=== PATIENT | female | born 1990 | race American Indian/Alaskan Native ===

== ENCOUNTER 2020-08-31 20:25 | Outpatient (CLI) | payer MEDICAID ==
[2020-08-31] MEDS ORDERED: LACTATED RINGERS 1,000 ML IV ONE (21:15)
[2020-08-31 21:24] LABS: Bilirubin,Urine NEG (Negative); Blood,Urine NEG (Negative); Color,Urine Yellow (Yellow); Mucus,Urine FEW /HPF; Protein,Urine <15 mg/dL mg/dL (Negative); Urobilinogen,Urine < 2.0 mg/dL (<2.0)
[2020-08-31] MEDS ORDERED: ACETAMINOPHEN 325 MG TAB PO ONE (21:42)
[2020-08-31] MEDS ORDERED: TERBUTALINE 1 MG/1 ML INJ SUB-Q ONE (21:46)
[2020-08-31] MEDS ORDERED: TERBUTALINE 1 MG/1 ML INJ ONE (21:58)
[2020-08-31] MEDS ORDERED: ACETAMINOPHEN 500 MG TAB PO ONE (22:42)
== END 2020-09-01 00:45 | disposition home or self-care (01) ==
LOC: TRG 20:25 → APU 20:57 → TRG 09-01 00:45
PROVIDERS: ATTEND Obstetrics & Gynecology
DX: O26.892 Other specified pregnancy related conditions, second trimester (principal); R10.9 Unspecified abdominal pain; Z3A.26 26 weeks gestation of pregnancy
CPT/HCPCS: 59025; 81001; 96360; 96372; J3105; J7120

== ENCOUNTER 2020-09-15 11:53 | Outpatient (CLI) | payer MEDICAID | END 2020-09-15 14:17 | disposition home or self-care (01) | LOC: LAB 11:53 → APU 13:56 → LAB 14:17 | PROVIDERS: ATTEND Obstetrics & Gynecology | DX: O26.893 Other specified pregnancy related conditions, third trimester (principal); Z67.11 Type A blood, Rh negative; Z3A.31 31 weeks gestation of pregnancy | CPT/HCPCS: 86850; 86900; 86901; 96372; J2790 ==

== ENCOUNTER 2020-09-17 21:46 | Outpatient (CLI) | payer MEDICAID ==
[2020-09-18 01:29] LABS: Hemoglobin 10.2 gm/dl (10.1-14.3); Mean Corpuscular HGB Conc 34 % (30-34); Mean Corpuscular Volume 85 fl (79-97); Platelet Count 185 K/mm3 (140-440); Red Blood Count 3.53 M/mm3 (3.65-5.03); Red Cell Distribution Width 14.6 % (13.2-15.2)
[2020-09-18 01:36] LABS: Amphetamine Screen,Urine PRESUMPTIVE NEGATIVE; Benzodiazepines Screen,Urine PRESUMPTIVE NEGATIVE; Cannabinoid Screen,Urine PRESUMPTIVE POSITIVE; Cocaine Screen,Urine PRESUMPTIVE NEGATIVE; Methadone Screen,Urine PRESUMPTIVE NEGATIVE; Opiate Screen,Urine PRESUMPTIVE NEGATIVE
[2020-09-18 01:43] LABS: Alanine Aminotransferase 7 units/L (7-56)
[2020-09-18 01:59] LABS: Blood Urea Nitrogen 7 mg/dL (7-17); Calcium 8.4 mg/dL (8.4-10.2); Hemolysis Index 9
[2020-09-18 02:03] LABS: Bacteria,Urine 1+ /HPF (Negative); Bilirubin,Urine NEG (Negative); Blood,Urine SM (Negative); Color,Urine Yellow (Yellow); Protein,Urine <15 mg/dL mg/dL (Negative); Urobilinogen,Urine < 2.0 mg/dL (<2.0)
[2020-09-18 02:10] LABS: BUN/Creatinine Ratio 14
[2020-09-18] MEDS ORDERED: LIDOCAINE-MPF (1%) 10 MG/1 ML VIAL 5 ML INFILTRATI ONE ×2 (02:51→04:00)
[2020-09-18] MEDS: TERBUTALINE 1 MG/1 ML INJ SUB-Q PRN ×3 (03:37→04:43)
[2020-09-18 04:40] VITALS: BP 121/59
== END 2020-09-18 05:20 | disposition home or self-care (01) ==
LOC: TRG 21:46 → APU 21:47 → TRG 09-18 05:20
PROVIDERS: ATTEND Obstetrics & Gynecology
DX: O62.9 Abnormality of forces of labor, unspecified (principal); Z3A.31 31 weeks gestation of pregnancy
CPT/HCPCS: 36415; 59025; 80053; 80307; 81001; 85027; 96372; J0696; J3105; 96360

== ENCOUNTER 2020-11-17 08:32 | Inpatient (IN) | payer MEDICAID ==
[2020-11-17] MEDS ORDERED: TERBUTALINE 1 MG/1 ML INJ SUB-Q PRN (09:45)
[2020-11-17] MEDS ORDERED: LOPERAMIDE 2 MG CAP PO PRN (10:00)
[2020-11-17] MEDS ORDERED: ePHEDrine SULFATE 50 MG/1 ML INJ IV PRN ×2 (10:00→18:20)
[2020-11-17] MEDS ORDERED: BUTORPHANOL 2 MG/1 ML INJ IV PRN (10:00)
[2020-11-17] MEDS ORDERED: CARBOPROST TROMETHAMINE 250 MCG/1 ML INJ IM PRN (10:00)
[2020-11-17] MEDS ORDERED: fentaNYL 100 MCG/2 ML INJ IV PRN (10:00)
[2020-11-17] MEDS ORDERED: OXYTOCIN DRIP 30 UNITS/500 ML BAG IV SCH (10:00)
[2020-11-17] MEDS ORDERED: ACETAMINOPHEN 325 MG TAB PO PRN ×2 (10:00→19:53)
[2020-11-17 10:04] LABS: Hematocrit 30.8 % (30.3-42.9); Hemoglobin 10.5 gm/dl (10.1-14.3); Mean Corpuscular HGB Conc 34 % (30-34); Mean Corpuscular Volume 86 fl (79-97); Platelet Count 234 K/mm3 (140-440); Red Blood Count 3.57 M/mm3 (3.65-5.03); Red Cell Distribution Width 15.6 % (13.2-15.2)
[2020-11-17] MEDS ORDERED: miSOPROStol 200 MCG TAB PR PRN (10:30)
[2020-11-17] MEDS ORDERED: OXYTOCIN 10 UNIT/1 ML INJ IM PRN (10:30)
[2020-11-17] MEDS ORDERED: NalbUPHINE 10 MG/1 ML INJ IV PRN ×2 (10:30→18:20)
[2020-11-17] MEDS ORDERED: METHYLERGONOVINE MALEATE 0.2 MG/ML VIAL IM PRN (11:00)
[2020-11-17] MEDS ORDERED: LIDOCAINE (2%) 20 MG/1 ML VIAL 20 ML MDV INFILTRATI ONE (11:00)
[2020-11-17] MEDS: LACTATED RINGERS 1,000 ML IV SCH ×2 (11:10→18:02)
[2020-11-17] MEDS ORDERED: miSOPROStol 25 MCG TAB VG PRN (12:00)
[2020-11-17] MEDS: OXYTOCIN DRIP 30 UNITS/500 ML BAG IV SCH ×5 (12:17→16:27)
--- NOTE | 2020-11-17 16:42 | History and Physical Report ---
History of Present Illness Date of examination: 11/16/20 Date of admission: 11/17/20 08:32 Chief complaint: Admitted for induction: obesity. History of present illness: . DAMARIS 11/17/20. Past History Past Medical History: no pertinent history Past Surgical History: no surgical history - Obstetrical History Expected Date of Delivery: 11/17/20 Actual Gestation: 40 Week(s) 0 Day(s) : 3 Medications and Allergies Allergies Allergy/AdvReac Type Severity Reaction Status Date / Time No Known Allergies Allergy Unverified 08/31/20 21:11 Active Meds: Active Medications Acetaminophen (Acetaminophen 325 Mg Tab) 650 mg PO Q4H PRN PRN Reason: Pain, Mild (1-3) Butorphanol Tartrate (Butorphanol 2 Mg/1 Ml Inj) 2 mg IV Q2H PRN PRN Reason: Pain , Severe (7-10) Carboprost Tromethamine (Carboprost Tromethamine 250 Mcg/1 Ml Inj) 250 mcg IM ONCE PRN PRN Reason: Uterine Bleeding Stop: 11/18/20 20:00 Ephedrine Sulfate (Ephedrine Sulfate 50 Mg/1 Ml Inj) 10 mg IV Q2M PRN PRN Reason: Hypotension Fentanyl (Fentanyl 100 Mcg/2 Ml Inj) 100 mcg IV Q2H PRN PRN Reason: Pain,Severe (7-10) LABOR PAIN Oxytocin/Sodium Chloride (Pitocin/Ns 30 Unit/500ml) 30 units in 500 mls @ 2 mls/hr IV TITR SHAE; Protocol Last Admin: 11/17/20 16:27 Dose: 10 ml/hr, 10 mls/hr Documented by: Lactated Ringer's (Lactated Ringers) 1,000 mls @ 125 mls/hr IV DIRECT SHAE Last Admin: 11/17/20 11:10 Dose: 125 mls/hr Documented by: Oxytocin/Sodium Chloride (Pitocin/Ns 30 Unit/500ml) 30 units in 500 mls @ 40 mls/hr IV TITR SHAE; Protocol Loperamide HCl (Loperamide 2 Mg Cap) 2 mg PO ONCE PRN PRN Reason: give with Hemabate Stop: 11/18/20 20:00 Methylergonovine Maleate (Methylergonovine Maleate 0.2 Mg/Ml Vial) 0.2 mg IM ONCE PRN PRN Reason: Uterine Bleeding Stop: 11/18/20 23:00 Mineral Oil (Mineral Oil 30 Ml Oral Liqd) 30 ml PO QHS PRN PRN Reason: Constipation Misoprostol (Misoprostol 200 Mcg Tab) 800 mcg KS ONCE PRN PRN Reason: Uterine Bleeding Stop: 11/18/20 23:00 Misoprostol (Misoprostol 25 Mcg Tab) 25 mcg VG Q4H PRN PRN Reason: Labor Induction Stop: 11/17/20 23:59 Nalbuphine HCl (Nalbuphine 10 Mg/1 Ml Inj) 10 mg IV Q2H PRN PRN Reason: Pain, Moderate (4-6) Oxytocin (Oxytocin 10 Unit/1 Ml Inj) 10 unit IM ONCE PRN PRN Reason: Uterine Bleeding Terbutaline Sulfate (Terbutaline 1 Mg/1 Ml Inj) 0.25 mg SUB-Q ONCE PRN PRN Reason: Hyperstimulation/Hypertonicity Stop: 11/18/20 23:00 Review of Systems All systems: negative - Vital Signs Vital signs: Vital Signs Pulse Pulse Ox 89 98 11/17/20 09:24 11/17/20 09:24 Temp Pulse Resp BP Pulse Ox 98.3 F 81 16 118/68 100 11/17/20 09:55 11/17/20 11:39 11/17/20 09:55 11/17/20 09:55 11/17/20 11:39 - Physical Exam Lungs: Positive: Normal air movement Abdomen: Positive: normal appearance, soft, distention Vulva: both: normal Vagina: Positive: normal moisture. Negative: discharge Cervix: Negative: lesion, discharge Uterus: Positive: enlarged, normal contour Anus/Rectum: Positive: normal perianal skin Extremities: Positive: normal Deep Tendon Reflex Grade: Normal +2 - Obstetrical FHR: auscultation normal, category 1 Uterine Contraction Monitor Mode: Palpation Cervical Dilatation: 0 Cervical Effacement Percentage: 80 station: 0 Uterine Contraction Pattern: Irregular Uterine Contraction Intensity: Mild Results Result Diagrams: 11/17/20 09:35 Abnormal lab results 11/17/20 Range/Units 09:35 RBC 3.57 L (3.65-5.03) M/mm3 RDW 15.6 H (13.2-15.2) % All other labs normal. Assessment and Plan - Patient Problems (1) Postmaturity , 40-42 weeks gestation Current Visit: Yes Status: Acute (2) Obesity Current Visit: Yes Status: Acute Plan to address problem: admitted for induction.
[2020-11-17] MEDS ORDERED: diphenhydrAMINE 50 MG/ML VIAL IV PRN (18:20)
[2020-11-17] MEDS ORDERED: NALOXONE 2 MG/2 ML INJ IV PRN (18:20)
[2020-11-17] MEDS ORDERED: ONDANSETRON 4 MG/2 ML INJ IV PRN ×2 (18:20→19:53)
--- NOTE | 2020-11-17 18:49 | Anesthesia Consultation ---
Anesthesia Consult and Med Hx Date of service: 11/17/20 - Airway Anesthetic Teeth Evaluation: Good ROM Head & Neck: Adequate Mental/Hyoid Distance: Adequate Mallampati Class: Class III Intubation Access Assessment: Probably Good - Pulmonary Exam CTA: Yes - Cardiac Exam Cardiac Exam: RRR - Pre-Operative Health Status ASA Pre-Surgery Classification: ASA2 Proposed Anesthetic Plan: Epidural, Spinal - Pulmonary Hx Smoking: No Hx Asthma: No COPD: No Hx Pneumonia: No Hx Sleep Apnea: No - Cardiovascular System Hx Hypertension: No Hx Heart Attack/AMI: No Hx Angina: No - Central Nervous System Hx Seizures: No Hx Psychiatric Problems: No - Gastrointestinal Hx Gastroesophageal Reflux Disease: No - Endocrine Hx Renal Disease: No Hx End Stage Renal Disease: No Hx Liver Disease: No Hx Insulin Dependent Diabetes: No Hx Non-Insulin Dependent Diabetes: No Hx Hypothyroidism: No Hx Hyperthyroidism: No - Hematic Hx Anemia: No Hx Sickle Cell Disease: No - Other Systems Hx Alcohol Use: No
--- NOTE | 2020-11-17 18:49 | Progress Note ---
Labor Epidural - Labor Epidural Start Time: 18:30 Stop Time: 18:43 Performed by:: BENJAMIN JEREZ Procedure: Patient is requesting combined spinal epidural for labor and pain. H&P, labs were reviewed. All questions and concerns were answered. Informed consent was obtained. Timeout performed. Patient in sitting position on side of bed. Sterile prep and drape was performed. 3 mL 1% lidocaine skin wheal at L [3]-L [4]. 18-gauge Tuohy epidural needle advanced to [id number] using air technique, [7]. 27-gauge spinal needle advanced, positive free-flowing CSF. Spinal dose of [Marcaine 3mg]. Epidural catheter advanced to [12] cm. [negative] Aspiration, [negative] test dose. Sterile dressing applied. Patient tolerated procedure well.
[2020-11-17] MEDS ORDERED: LACTATED RINGERS 250 ML IV SOLN IV ONE (19:00)
[2020-11-17] MEDS ORDERED: fentaNYL-BUPIV 2 MCG/ML-0.125% 200 MCG/100 ML BAG EPIDURAL SCH (19:00)
[2020-11-17] MEDS ORDERED: PROMETHAZINE 25 MG TAB PO PRN (19:53)
[2020-11-17] MEDS ORDERED: MAGNESIUM HYDROXIDE (MOM) ORAL LIQD UDC PO PRN (19:53)
[2020-11-17] MEDS ORDERED: KETOROLAC 30 MG/1 ML INJ IV PRN (19:53)
[2020-11-17] MEDS ORDERED: diphenhydrAMINE 25 MG CAP PO PRN (19:53)
[2020-11-17] MEDS ORDERED: HYDROcodone/ACETAMINOPHEN 5-325 MG TAB PO PRN (19:53)
[2020-11-17] MEDS ORDERED: LANOLIN/ZINC/DIMETHICONE (LANSINOH) 7 GM TP PRN (19:53)
[2020-11-17] MEDS ORDERED: WITCH HAZEL/ GLYCERIN PAD TP PRN (19:53)
[2020-11-17] MEDS ORDERED: PROMETHAZINE 25 MG RECT SUPP PR PRN (19:53)
--- NOTE | 2020-11-17 19:59 | Procedure Note ---
OB Delivery Note - Delivery Date of Delivery: 11/16/20 Surgeon: TAHIR ROOT Estimated blood loss: 300cc - Vaginal Delivery induction: oxytocin Delivery augmentation: rupture of membranes Delivery monitor: external FHT, external uterine, internal uterine Route of delivery: Delivery placenta: spontaneous, expressed Delivery cord: nuchal cord, 3 umbilical vessels Episiotomy: none Delivery laceration: none Anesthesia: epidural - A at 1 minute: 8 at 5 minutes: 9 Gender: Female
[2020-11-17] MEDS ORDERED: MINERAL OIL 30 ML ORAL LIQD PO PRN (22:00)
[2020-11-18] MEDS: IBUPROFEN 600 MG TAB PO SCH ×5 (00:11→23:36)
--- NOTE | 2020-11-18 12:17 | Post Anesthesia Evaluation ---
- Post Anesthesia Evaluation Patient Participated: Yes Airway Patent: Yes Stable Respiratory Function: Yes Nausea/Vomiting: No Temp > 96.8F: Yes Pain Manageable: Yes Adequeate Hydration: Yes Anesthesia Complications: No Block Receding Appropriately: Yes Patient on Ventilator: No
[2020-11-18 14:05] LABS: Hematocrit 29.9 % (30.3-42.9); Hemoglobin 10.1 gm/dl (10.1-14.3)
--- NOTE | 2020-11-18 15:27 | Progress Note ---
Assessment and Plan - Patient Problems (1) Postmaturity , 40-42 weeks gestation Current Visit: Yes Status: Resolved (2) Obesity Current Visit: Yes Status: Chronic (3) Status post normal vaginal delivery Current Visit: Yes Status: Acute Plan to address problem: Stable. May go home later today if all ok. Subjective - Subjective Date of service: 11/18/20 Principal diagnosis: Status post day 1. Interval history: . DAMARIS 11/17/20. Patient reports: appetite normal, voiding normally, pain well controlled, ambulating normally, other (Requesting to gohome today.) [place]: doing well Objective - Vital Signs Latest vital signs: Vital Signs Temp Pulse Resp BP BP BP Pulse Ox 11/18/20 07:48 98.0 F 65 16 115/64 97 11/18/20 07:30 11/18/20 05:03 98.0 F 69 20 107/62 99 11/18/20 00:11 18 11/17/20 22:40 11/17/20 22:35 98.6 F 64 20 108/56 100 11/17/20 21:54 55 L 100 11/17/20 21:49 75 99 11/17/20 21:44 54 L 99 11/17/20 21:39 52 L 100 11/17/20 21:34 56 L 100 11/17/20 21:29 86 99 11/17/20 21:24 81 99 11/17/20 21:19 79 100 11/17/20 21:14 78 100 11/17/20 21:09 77 100 11/17/20 21:05 48 L 118/62 11/17/20 21:04 60 97 11/17/20 20:59 57 L 98 11/17/20 20:54 60 98 11/17/20 20:49 62 98 11/17/20 20:44 47 L 100 11/17/20 20:39 57 L 100 11/17/20 20:34 55 L 100 11/17/20 20:29 76 100 11/17/20 20:24 52 L 100 11/17/20 20:19 55 L 100 11/17/20 20:14 53 L 100 11/17/20 20:13 73 130/58 11/17/20 20:09 57 L 100 11/17/20 20:04 57 L 97 11/17/20 19:59 63 97 11/17/20 19:54 59 L 99 11/17/20 19:49 97 11/17/20 19:48 88 11/17/20 19:45 98.3 F 11/17/20 19:44 51 L 111/69 11/17/20 19:43 30 L 92 11/17/20 19:29 68 100 11/17/20 19:24 79 94 11/17/20 19:23 61 100 11/17/20 19:18 71 100 11/17/20 19:13 64 96 11/17/20 19:08 70 100 11/17/20 19:03 57 L 100 11/17/20 18:58 70 100 11/17/20 18:55 67 93 11/17/20 18:53 64 100 11/17/20 18:48 61 100 11/17/20 18:47 78 89 11/17/20 18:43 64 100 11/17/20 18:41 61 87 11/17/20 18:38 62 100 11/17/20 18:29 59 L 123/66 11/17/20 18:23 64 94 11/17/20 16:41 98.5 F 84 16 118/65 11/17/20 16:40 78 118/65 Pulse Ox 11/18/20 07:48 11/18/20 07:30 98 11/18/20 05:03 11/18/20 00:11 11/17/20 22:40 100 11/17/20 22:35 11/17/20 21:54 11/17/20 21:49 11/17/20 21:44 11/17/20 21:39 11/17/20 21:34 11/17/20 21:29 11/17/20 21:24 11/17/20 21:19 11/17/20 21:14 11/17/20 21:09 11/17/20 21:05 11/17/20 21:04 11/17/20 20:59 11/17/20 20:54 11/17/20 20:49 11/17/20 20:44 11/17/20 20:39 11/17/20 20:34 11/17/20 20:29 11/17/20 20:24 11/17/20 20:19 11/17/20 20:14 11/17/20 20:13 11/17/20 20:09 11/17/20 20:04 11/17/20 19:59 11/17/20 19:54 11/17/20 19:49 11/17/20 19:48 11/17/20 19:45 11/17/20 19:44 11/17/20 19:43 11/17/20 19:29 11/17/20 19:24 11/17/20 19:23 11/17/20 19:18 11/17/20 19:13 11/17/20 19:08 11/17/20 19:03 11/17/20 18:58 11/17/20 18:55 11/17/20 18:53 11/17/20 18:48 11/17/20 18:47 11/17/20 18:43 11/17/20 18:41 11/17/20 18:38 11/17/20 18:29 11/17/20 18:23 11/17/20 16:41 11/17/20 16:40 Intake and Output 11/17/20 11/18/20 11/18/20 23:59 07:59 15:59 Intake Total 871.133 240 120 Output Total 1700 Balance 871.133 -1460 120 Intake: IV 871.133 Lactated Ringers 1,000 ml 858.333 @ 125 mls/hr IV DIRECT [facility] Rx#:[id number] PITOCin/NS 30 UNIT/500ML 12.8 30 units In 500 ml @ 2 mls/hr IV TITR [facility] Rx#: [id number] Oral 240 120 Output: Urine 1700 Void 1700 Other: Total, Intake Amount 240 120 Total, Output Amount 800 # Voids Void 1 1 Estimated Blood Loss 300 - Exam Breasts: Present: deferred Lungs: Present: Normal air movement Abdomen: Present: normal appearance, soft Uterus: Present: normal, firm Extremities: Present: normal Deep Tendon Reflex Grade: Normal +2 - Labs Labs: Abnormal lab results 11/18/20 Range/Units 13:41 Hct 29.9 L (30.3-42.9) %
--- NOTE | 2020-11-18 15:37 | Discharge Summary ---
Providers - Providers Date of Admission: 11/17/20 08:32 Date of discharge: 11/18/20 Attending physician: TAHIR ROOT MD Primary care physician: TAHIR ROOT MD Hospitalization Reason for admission: induction of labor, IUP at term Delivery: Episiotomy: none Laceration: none Other procedures: none complications: none Discharge diagnosis: IUP at term delivered baby: female Condition at discharge: Good Disposition: 01 HOME / SELF CARE / HOMELESS - Discharge Diagnoses (1) Postmaturity , 40-42 weeks gestation Status: Resolved (2) Obesity Status: Chronic (3) Status post normal vaginal delivery Status: Acute Plan - Provider Discharge Summary Activity: routine, no sex for 6 weeks, no heavy lifting 4 weeks, no strenuous exercise Diet: routine Instructions: routine Additional instructions: [] Smoking cessation referral if applicable(refer to patient education folder for contact #) [] Refer to [facility] Call your doctor immediately for: * Fever > 100.5 * Heavy vaginal bleeding ( >1 pad per hour) * Severe persistent headache * Shortness of breath * Reddened, hot, painful area to leg or breast * Drainage or odor from incision. * Keep incision clean and dry at all times and follow doctor's instructions regarding bathing/showering - Follow up plan Follow up: TAHIR ROOT MD [Primary Care Provider] - 7 Days
[2020-11-19] MEDS: IBUPROFEN 600 MG TAB PO SCH (06:00)
[2020-11-19 13:20] VITALS: BP 113/70
== END 2020-11-19 13:10 | disposition home or self-care (01) | DRG 775 ==
LOC: LD 08:32 → OB 22:37
PROVIDERS: ADMIT Obstetrics & Gynecology; ATTEND Obstetrics & Gynecology
PROC: 10E0XZZ Delivery of Products of Conception, External Approach (ICD-10-PCS; principal; 2020-11-16)
PROC: 3E0R3BZ Introduction of Anesthetic Agent into Spinal Canal, Percutaneous Approach (ICD-10-PCS; 2020-11-16)
PROC: 00HU33Z Insertion of Infusion Device into Spinal Canal, Percutaneous Approach (ICD-10-PCS; 2020-11-16)
DX: O69.81X0 Labor and delivery complicated by cord around neck, without compression, not applicable or unspecified (principal); Z3A.40 40 weeks gestation of pregnancy; Z37.0 Single live birth; O99.214 Obesity complicating childbirth; Z20.822 Contact with and (suspected) exposure to COVID-19
CPT/HCPCS: 36415; 85014; 85018; 85027; 85461; 86592; 86850; 86900; 86901; 99211; G0378; G0463; J0595; J2590; J2790; J7120; U0003